=== PATIENT | female | born 1970 | race Caucasian/White ===

== ENCOUNTER 2019-11-23 22:20 | Emergency (ER) | payer BC ==
[~2019-11-23] VITALS: Ht 162.6 cm; Wt 63.6 kg
[~2019-11-23 22:20] MED LIST: NO HOME MEDICATIONS
[2019-11-23 22:21] VITALS: TEMP 98.4
[2019-11-24 02:42] VITALS: BP 109/70; PULSE 88
== END 2019-11-24 02:42 | disposition home or self-care (01) ==
LOC: COL.ER 22:20
DX: S06.0X9A Concussion with loss of consciousness of unspecified duration, initial encounter (principal); S01.01XA Laceration without foreign body of scalp, initial encounter; W55.39XA Other contact with other hoof stock, initial encounter; Y92.009 Unspecified place in unspecified non-institutional (private) residence as the place of occurrence of the external cause
CPT/HCPCS: J2405; J2550; J3010; J7040